=== PATIENT | male | born 1965 | race Caucasian/White ===

== ENCOUNTER 2025-03-13 13:20 | Emergency (ER) | payer OTHER ==
[~2025-03-13] VITALS: Ht 185.4 cm; Wt 70.0 kg
[~2025-03-13 13:20] MED LIST: AZIT500T66 PO; ERGO1CAP23 PO; FER325T PO; FUR40I IV; LACT10SO3 PO; MID10T PO; PANT40TA2 PO
[2025-03-13] MEDS: LORazepam 2MG/ML-1ML VIAL IV ONE (13:45)
[2025-03-13 13:46] VITALS: TEMP 97.8
--- NOTE | 2025-03-13 13:52 | ED.PDOC ---
HPI (NEURO) HPI Comments 59 year old male presents to the ED with chief complaint of seizure. Patient's reports that she had witnessed the patient suffer a seizure at home lasting around 3-4 minutes. relays that the patient had two other seizure before, last one being about 8 months ago. Patient states that is not on seizure medications and has not seen his PCP regarding this issue. Patient notes that he heavily drinks and smokes, having a history of liver cirrhosis. Patient denies any N/V, oral trauma, head injury, dizziness, headache, chest pain, or SOB. Time Seen by MD: 13:40 Primary Care Provider: UNKNOWN Reviewed Notes: Nurses Notes, Medications Information Source: Patient Mode of Arrival: Wheelchair Severity: Moderate Timing: Hours Duration: Since onset Prehospital treatment: None Seizure Quality: Tonic-clonic Seizure Location: Generalized Onset: At rest Circumstances: Spontaneous Before: Normal During: LOC After: Confusion History of: Seizure Disorder Modifying factors: Nothing Associated Signs and Symptoms: None Past Medical History PAST MEDICAL HISTORY: HTN, Liver Surgical History: Denies all surgeries Family History Family History: Reviewed,noncontributory to illness Social History Smoker: Cigarettes Alcohol: Heavy Drugs: Denies Drug Use Lives In: Home Constitutional: denies: chills, diaphoresis, fatigue, fever, malaise, sweats, weakness, others EENTM: denies: blurred vision, double vision, ear bleeding, ear discharge, ear drainage, ear pain, ear ringing, eye pain, eye redness, hearing loss, mouth pain, mouth swelling, nasal discharge, nose bleeding, nose congestion, nose pain, photophobia, tearing, throat pain, throat swelling, voice changes, others Respiratory: denies: cough, hemoptysis, orthopnea, SOB at rest, shortness of breath, SOB with excertion, stridor, wheezing, others Cardiovascular: denies: chest pain, dizzy spells, diaphoresis, Dyspnea on exertion, edema, irregular heart beat, left arm pain, lightheadedness, pa lpitations, PND, syncope, others Gastrointestinal: denies: abdomen distended, abdominal pain, blood streaked bowels, constipated, diarrhea, dysphagia, difficulty swallowing, hematemesis, melena, nausea, poor appetite, poor fluid intake, rectal bleeding, rectal pain, vomiting, others Genitourinary: denies: burning, dysuria, flank pain, frequency, hematuria, incontinence, penile discharge, penile sore, pain, testicle pain, testicle swelling, urgency, others Neurological: reports: seizure; denies: dizziness, fainting, headache, left sided numbness, left sided weakness, numbness, paresthesia, pre-existing deficit, right sided numbness, right sided weakness, speech problems, tingling, tremors, weakness, others Musculoskeletal: denies: back pain, gout, joint pain, joint swelling, muscle pain, muscle stiffness, neck pain, others Integumetry: denies: bruises, change in color, change in hair/nails, dryness, laceration, lesions, lumps, rash, wounds, others Allergic/Immunocompromised: denies: Difficulty Healing, Frequent Infections, Hives, Itching, others Hematologic/Lymphatic: denies: anemia, blood clots, easy bleeding, easy bruising, swollen glands, others Endocrine: denies: excessive hunger, excessive sweating, excessive thirst, excessive urination, flushing, intolerance to cold, intolerance to heat, unexplained weight gain, unexplained weight loss, others Psychiatric: denies: anxiety, bipolar disorder, depression, hopeless, panic disorder, schizophrenia, sleepless, suicidal, others All Other Systems: Reviewed and Negative Physical Exam General Appearance: Moderate Distress, Normal HEENT: Normal ENT Inspection, Pharynx Normal, TMs Normal Neck: Full Range of Motion, Non-Tender, Normal, Normal Inspection Respiratory: Chest Non-Tender, Lungs Clear, No Accessory Muscle Use, No Respiratory Distress, Normal Breath Sounds Cardiovascular: No Edema, No JVD, No Murmur, No Gallop, Normal Peripheral Pulses, Regular Rate/Rhythm Breast Exam: Deferred Gastrointestinal: No Organomegaly, Non Tender, No Pulsatile Mass, Normal Bowel Sounds, Soft Genitalia: Deferred Pelvic: Deferred Rectal: Deferred Extremities: No calf tenderness, Normal capillary refill, Normal inspection, Normal range of motion, Non-tender, No pedal edema Musculoskeletal : Apperance: Normal Neurologic: Alert, transfer station attendant II-XII nml as Tested, No Motor Deficits, Normal Affect, Normal Mood, No Sensory Deficits Cerebellar Function: Normal Reflexes: Normal Skin: Dry, Normal Color, Warm Peripheral Pulses: 3+ Radial (R), 3+ Radial (L) Lymphatic: No Adenopathy Was a procedure done? Was a procedure done?: No Differential Diagnosis (SZ) Seizure: Psychogenic Seizure, Closed Head Injury, CVA/TIA X-Ray, Labs, Meds, VS Vital Signs Date Time Temp Pulse Resp B/P (MAP) Pulse Ox O2 Delivery O2 Flow Rate FiO2 03/13/25 14:30 90 18 137/83 (101) 97 03/13/25 14:30 90 18 97 Room Air* 0 21 03/13/25 13:46 97.8 101 16 144/89 (107) 97 97.8 Lab Test 03/13/25 14:09 Range/Units Plasma/Serum Blood Alcohol 7.0 <10 mg/dL Current Medications Medications (Trade) Dose Ordered Sig/Edwardo Route Start Time Stop Time Status Last Admin Lorazepam (Ativan Inj) 1 mg ONCE ONCE IV 03/13/25 13:45 03/13/25 13:46 DC 03/13/25 13:45 Sodium Chloride 1,000 ml @ 1,000 mls/hr Q1H ONCE IV 03/13/25 13:45 03/13/25 14:44 DC 03/13/25 14:09 Sodium Chloride 1,000 ml @ 150 mls/hr Q6H40M ONCE IV 03/13/25 13:45 03/13/25 20:24 03/13/25 15:13 Thiamine HCl 100 mg ONCE ONCE IV 03/13/25 13:45 03/13/25 13:46 DC 03/13/25 14:09 Patient alert pain Possible seizure. Possible alcohol withdrawal. Patient has been drinking regularly. Last drink was this morning. Did not hit his head. Was given thiamine. Was given Ativan. Continue monitoring. Counseled patient on effects of drinking for 15 minutes. Explained to the patient that he will be discharged but he will need follow up with a neurologist. CT scan of the head reviewed does not show any acute process. Explained to the patient at 3:45 p.m. that he will be discharged. Reviewed the CT scan resolved with the patient. His drinking needs to be stopped. He was told that he may have a seizure if he continues to drink. Was given prescription of Librium. Time of 1ST Reevaluation: 14:40 Reevaluation 1ST: Unchanged Patient Education/Counseling: Diagnosis, Treatment Family Education/Counseling: Diagnosis, Treatment Additional Information The following tests were ordered, and results were reviewed by me: Additional Information was gathered from interviewing the following independent historians: I reviewed and agreed with the following test results read by other providers: I discussed treatment and results with medical personnel and: patient Comprehensive systems review obtained and negative except for what is stated in the HPI. Departure 1 Departure Time of Disposition: 14:48 Impression: Primary Impression: Cirrhosis of liver with ascites Qualified Codes: K70.31 - Alcoholic cirrhosis of liver with ascites Additional Impression: Alcohol intoxication Qualified Codes: F10.920 - Alcohol use, unspecified with intoxication, uncomplicated Disposition: 01 HOME / SELF CARE / HOMELESS Condition: Good e-Prescriptions Chlordiazepoxide Hcl (Ni-1) (I (Librium) 10 Mg Cap 10 MG PO DAILY for 10 Days, #10 CAP Prov: SANDRA VICENTE MD 03/13/25 Discharged With: Self Comments Spoke to and examined patient at 1340, discussing treatment plan at this time. Critical Care Note Critical Care Time?: No Stability Stability form required: No Heart Score Heart Score: Heart Score Response (Comments) Value History N/A 0 EKG N/A 0 Age N/A 0 Risk Factors N/A 0 Troponin N/A 0 Total 0 I personally scribed for SANDRA VICENTE MD ([email or web address]) on 03/13/25 at 13:52. Electronically submitted by Quan Hallman ([email or web address]). SANDRA VICENTE MD March 13, 2025 13:52
[2025-03-13] MEDS: THIAMINE 100mg/ml INJ (200mg/2ml VIAL) IV ONE (14:09)
[2025-03-13] MEDS: SODIUM CHLORIDE 0.9% 1,000 ML IV ONE ×2 (14:09→15:13)
[2025-03-13 14:30] VITALS: PULSE 90; RESP 18; O2SAT 97
--- NOTE | 2025-03-13 15:19 | DVH ---
CT BRAIN WITHOUT CONTRAST HISTORY: seizure TECHNIQUE: Axial scans were obtained from the skull base through the vertex without contrast. Sagitta l and coronal reformats were generated. One or more of the following radiation dose reduction techniq ues were used for this examination: automated exposure control, adjustment of the mA and/or kV accord ing to patient size, use of iterative reconstruction technique. COMPARISON: CT HEAD WITHOUT CONTRAST on DOS: 10/24/23 FINDINGS: The ventricular system and cortical sulci are normal in size for patient age. No abnormal extra-axial fluid collections or findings of intracranial hemorrhage. No intracranial mass or findings of acute ischemic infarction are demonstrated on these noncontrast s cans. Visualized paranasal sinuses are clear. No evidence of skull fracture. Other: Negative. IMPRESSION: 1. No acute intracranial findings. Negative CT scan head. 2. Global atrophy which was seen before and appears to be unchanged.
[2025-03-13] MEDS ORDERED: CHL10C PO (15:51)
[2025-03-13] MEDS: chlordiazePOXIDE HCL 5 MG CAP PO ONE (16:14)
[2025-03-13 16:30] VITALS: BP 131/78; PULSE 8; RESP 20; O2SAT 98
== END 2025-03-13 16:31 | disposition home or self-care (01) ==
LOC: ER 13:26
DX: K70.31 Alcoholic cirrhosis of liver with ascites (principal); F10.129 Alcohol abuse with intoxication, unspecified; F17.210 Nicotine dependence, cigarettes, uncomplicated; I10 Essential (primary) hypertension; G40.909 Epilepsy, unspecified, not intractable, without status epilepticus; Y90.0 Blood alcohol level of less than 20 mg/100 ml
CPT/HCPCS: 36415; 70450; 80320; 96361; 96374; 96375; 99285; J2060; J3411; J7030